=== PATIENT | male | born 1960 | race Caucasian/White ===

== ENCOUNTER → 2016-11-29 | Outpatient (REF) | payer OTHER ==
[2016-11-29 12:15] LABS: ALBUMIN/GLOBULIN RATIO 1.29 (1.00-1.93); ALKALINE PHOSPHATASE 76 U/L (45-117); ALT/SGPT 53 U/L (12-78); ANION GAP 9 MEQ/L (8-16); AST/SGOT 31 U/L (15-37); BILIRUBIN,TOTAL 0.5 MG/DL (0.2-1.0); BLOOD UREA NITROGEN 16 MG/DL (7-18); CALCIUM LEVEL 9.5 MG/DL (8.5-10.1); CARBON DIOXIDE LEVEL 28 MEQ/L (21-32); CHLORIDE LEVEL 105 MEQ/L (98-107); CHOLESTEROL LEVEL 220 MG/DL (<200); CREATININE FOR GFR 1.08 MG/DL (0.70-1.30); GLOMERULAR FILTRATION RATE > 60.0 (>56); GLUCOSE, FASTING 107 MG/DL (70-105); POTASSIUM SERUM 4.6 MEQ/L (3.5-5.1); SODIUM LEVEL 142 MEQ/L (136-145); TOTAL PROTEIN 7.1 GM/DL (6.4-8.2); TRIGLYCERIDES LEVEL 189 MG/DL (<150)
== END | disposition home or self-care (01) ==
LOC: M SFHCPLAZ 09:59
PROVIDERS: ATTEND Physician Assistant
DX: R73.01 Impaired fasting glucose (principal); M79.1 Myalgia; Z12.5 Encounter for screening for malignant neoplasm of prostate; E78.4 Other hyperlipidemia
CPT/HCPCS: 36415; 80053; 80061; 83036; 86431; G0103

== ENCOUNTER 2017-06-19 14:38 | Emergency (ER) | payer BC, OTHER ==
[~2017-06-19] VITALS: Ht 175.3 cm; Wt 95.5 kg
[2017-06-19] MEDS ORDERED: OXYC1TAB23 PO (14:56)
[2017-06-19 16:46] LABS: BASO % 0.6 % (0.0-1.0); EOS # 0.2 K/mm3 (0.0-0.50); EOS % 3.2 % (0.0-3.0); LARGE UNSTAINED CELL # 0.1 K/mm3 (0.0-0.4); LYMPH # 1.6 K/mm3 (1.5-4.5); LYMPH % 22.7 % (24.0-44.0); MEAN CORPUSCULAR HEMOGLOBIN 30.2 pg (27.0-33.0); MEAN CORPUSCULAR VOLUME 88.7 fl (80.0-96.0); MONO # 0.5 K/mm3 (0.0-0.8); MONO % 7.4 % (0.0-5.0); NEUTROPHILS # 4.1 K/mm3 (1.8-7.7); NEUTROPHILS % 64.1 % (36.0-66.0); PLATELET COUNT, AUTOMATED 253 k/mm3 (150-450); WHITE BLOOD COUNT 6.3 K/mm3 (4.0-10.0)
[2017-06-19 17:04] LABS: ERYTHROCYTE SEDIMENTATION RATE 15 mm/hr (0-20)
[2017-06-19 17:11] LABS: ANION GAP 10 MEQ/L (8-16); BLOOD UREA NITROGEN 13 MG/DL (7-18); CALCIUM LEVEL 9.5 MG/DL (8.5-10.1); CARBON DIOXIDE LEVEL 27 MEQ/L (21-32); CHLORIDE LEVEL 106 MEQ/L (98-107); CREATININE FOR GFR 0.96 MG/DL (0.70-1.30); GLOMERULAR FILTRATION RATE > 60.0 (>56); GLUCOSE, FASTING 92 MG/DL (70-105); POTASSIUM SERUM 4.3 MEQ/L (3.5-5.1); SODIUM LEVEL 143 MEQ/L (136-145)
[2017-06-19] MEDS ORDERED: ISOVUE-370 76% 100ML VIAL (Q9967) As Ordered ONE (17:17)
[2017-06-19 18:15] VITALS: BP 155/72
--- NOTE | 2017-06-19 18:22 | REP ---
CT SOFT TISSUE NECK WITH CONTRAST: 06/19/2017. Clinical history: Postoperative cervical decompression fusion for spondylosis and spinal stenosis on 04/09/2017. Technologist placed BB markers at the superior and inferior margins of the area of interest in the anterior right neck and at the supraclavicular region. Technique: Patient received a bolus of 75 mL Isovue 370 with scanning through the neck and both coronal and sagittal reconstructions were applied. Orthopedic metal reduction was utilized on the axial projection. Comparison: X-ray 05/22/2015, MRI 10/03/2016. Findings: The nasopharyngeal airway, oropharynx, hypopharynx, larynx and subglottic trachea were all unremarkable. Plate and screw fixation from the inferior aspect of C3 through C7 with two screws in each vertebral body and disc spacers at each level. Posterior osteophytes are noted at multiple levels with central canal stenosis. There are pedicle screws from C3 through C7 posteriorly on both sides, arch bars connect these as well. Some straightening of the spine is noted which is to be expected. The dens was intact at C2-3 unremarkable. Ring of C1 intact. Central canal stenosis with posterior osteophytes evident at C6-7 and C5-6, less stenosis at C4-5, some at C3-4. Anterior neck soft tissues show the submandibular glands, parotid glands and thyroid lobes symmetric and normal. No pathologic sized or asymmetric lymphadenopathy in the anterior neck. Tongue was unremarkable. The valleculae, piriform sinuses and epiglottis are intact. Parapharyngeal spaces are preserved. Posterior cervical chain without significant adenopathy. A low-density posterior to the spinous processes of C6 and upward to the C3 some areas ill-defined others better defined. However, there is such spray artifact from the extensive posterior element hardware that margins are difficult to discern. I suspect seroma although infection cannot be excluded. Measurements are approximately 5.8 x 1.1 x 2 cm. No other fluid collections. Airway intact. Lung apices and bones intact. Impression: 1. Status post anterior and posterior cervical fusion with plate and screw anterior fixation, discectomy and bone graft disc fusion from C3-C7 and posterior element pedicle screws and arch bars from the same levels on both sides. 2. Some central canal stenosis at the levels described above. 3. Posterior to the spinous processes from about C3-C7 is a low density focus without significant rim enhancement. This may be seroma although infection cannot be entirely excluded. There is no anterior adenopathy, hematoma or abscess suggested. Signed by Geronimo Garrison MD 06/20/2017 08:46 A
== END 2017-06-19 18:16 | disposition home or self-care (01) ==
LOC: M ED 14:38
DX: M54.2 Cervicalgia (principal); Z98.1 Arthrodesis status; Z98.890 Other specified postprocedural states
CPT/HCPCS: 36415; 70491; 80048; 85025; 85652; 99283; Q9967

== ENCOUNTER → 2017-11-12 | Outpatient (REF) | payer BC, OTHER ==
[2017-11-12 14:52] LABS: HEMOGLOBIN 14.3 g/dl (14.0-18.0); MEAN CORPUSCULAR HEMOGLOBIN 28.9 pg (27.0-33.0); MEAN CORPUSCULAR HGB CONC 32.5 g/dl (32.0-36.5); MEAN CORPUSCULAR VOLUME 88.9 fl (80.0-96.0); PLATELET COUNT, AUTOMATED 273 10^3/uL (150-450); RED BLOOD COUNT 4.95 10^6/uL (4.30-6.10); RED CELL DISTRIBUTION WIDTH 13.2 % (11.5-14.5); WHITE BLOOD COUNT 6.5 10^3/uL (4.0-10.0)
[2017-11-12 15:12] LABS: ALBUMIN 4.1 GM/DL (3.2-5.2); ALBUMIN/GLOBULIN RATIO 1.52 (1.00-1.93); ALKALINE PHOSPHATASE 72 U/L (45-117); ALT/SGPT 32 U/L (12-78); ANION GAP 8 MEQ/L (8-16); AST/SGOT 27 U/L (7-37); BILIRUBIN,TOTAL 0.5 MG/DL (0.2-1.0); BLOOD UREA NITROGEN 17 MG/DL (7-18); CALCIUM LEVEL 8.8 MG/DL (8.5-10.1); CARBON DIOXIDE LEVEL 28 MEQ/L (21-32); CHLORIDE LEVEL 107 MEQ/L (98-107); CHOLESTEROL LEVEL 210 MG/DL (<200); CHOLESTEROL RISK RATIO 4.375 (<5); CREATININE FOR GFR 0.96 MG/DL (0.70-1.30); GLOMERULAR FILTRATION RATE > 60.0 (>56); GLUCOSE, FASTING 105 MG/DL (70-105); HDL CHOLESTEROL 48 MG/DL (>40); LDL CHOLESTEROL 134.6 MG/DL (<100); NON-HDL-C 162 MG/DL; POTASSIUM SERUM 4.1 MEQ/L (3.5-5.1); SODIUM LEVEL 143 MEQ/L (136-145); TOTAL PROTEIN 6.8 GM/DL (6.4-8.2); TRIGLYCERIDES LEVEL 137 MG/DL (<150)
[2017-11-12 15:20] LABS: ESTIMATED AVERAGE GLUCOSE 131 MG/DL (60-110); HEMOGLOBIN A1c 6.2 %
== END ==
LOC: M LABDRAW1 14:28
DX: Z00.00 Encounter for general adult medical examination without abnormal findings (principal); R73.01 Impaired fasting glucose; E78.2 Mixed hyperlipidemia
CPT/HCPCS: 80053

== ENCOUNTER → 2017-12-27 | Outpatient (CLI) | payer BC, OTHER | LOC: M ST 07:30 | DX: R13.10 Dysphagia, unspecified (principal) ==